=== PATIENT | male | born 1950 | race Caucasian/White ===

== ENCOUNTER 2019-12-12 16:24 | Emergency (ER) | payer MEDICARE ==
[2019-12-12] MEDS ORDERED: Boostrix 0.5 ML VIAL ONE (16:44)
== END 2019-12-12 17:15 | disposition home or self-care (01) ==
LOC: MADERS 16:24
DX: S91.331A Puncture wound without foreign body, right foot, initial encounter (principal); W22.8XXA Striking against or struck by other objects, initial encounter
CPT/HCPCS: 90471; 90715